=== PATIENT | male | born 1965 | race Caucasian/White ===

== ENCOUNTER → 2021-12-07 | Day surgery (SDC) | payer OTHER ==
[2021-12-06 08:41] LABS: BUN 16 mg/dl (7-24); CHLORIDE 110 mmol/L (98-107); CREATININE 1.19 mg/dL (0.70-1.30); POTASSIUM 4.3 mmol/L (3.5-5.1); SODIUM 141 mmol/L (136-145)
[~2021-12-07] VITALS: Ht 172.7 cm; Wt 122.5 kg
[~2021-12-07] MED LIST: CETIRIZINE10 MG PO; MECLIZINE HCL25 M2 PO; OMEPRAZOLE40 MG PO; VITAMIN B1250 MCG PO; VITAMIN D310 MC1 PO
[2021-12-07 06:54] VITALS: BP 149/94
[2021-12-07 07:49] VITALS: BP 132/91
[2021-12-07 08:04] VITALS: BP 133/91
[2021-12-07 08:18] VITALS: BP 143/95
== END | disposition home or self-care (01) ==
LOC: SDC 12-04 08:00 → LAB 00:52 → SDC 00:52 → LAB 07:30
PROVIDERS: ATTEND Orthopaedic Surgery
DX: G56.03 Carpal tunnel syndrome, bilateral upper limbs (principal); K21.9 Gastro-esophageal reflux disease without esophagitis; Z79.899 Other long term (current) drug therapy

== ENCOUNTER → 2023-09-05 | Day surgery (SDC) | payer OTHER ==
[2023-09-02 15:44] LABS: BUN 14 mg/dl (9-23); CHLORIDE 105 mmol/L (98-107); POTASSIUM 4.4 mmol/L (3.4-5.1)
[~2023-09-05] VITALS: Ht 170.1 cm; Wt 122.5 kg
[~2023-09-05] MED LIST changes: +BUPIVACAINE 0.5% 10 ML VIAL ONE; +EPINEPHrine/Lidocaine Hydroc 20 ML VIAL ONE; +LIPITOR40 MG PO; +Lidocaine Hydrochloride 2% 10 ML AMP IM ONE; +Lidocaine Hydrochloride 30 ML VIAL ONE; +Midazolam Hydrochloride 2 MG/2 ML VIAL IV ONE; +PEPCID20 MG PO; +PLAVIX75 M1 PO; +PROPOFOL 200 MG/20 ML VIAL IV ONE; +SODIUM CHLORIDE 0.9% 1,000 ML IV ONE; +SODIUM CHLORIDE 0.9% 1,000 ML IV SCH; +VALSARTAN40 MG PO; +ceFAZolin sodium 1GM/10ML IV SCH; +ceFAZolin sodium/sodium chlor 10 ML IV ONE
[2023-09-05 06:55] VITALS: BP 108/69
[2023-09-05 07:57] VITALS: BP 112/77
[2023-09-05 08:12] VITALS: BP 110/70
[2023-09-05 08:24] VITALS: BP 92/65
== END | disposition home or self-care (01) ==
LOC: SDC 09-02 08:00
PROVIDERS: ATTEND Orthopaedic Surgery
DX: G56.02 Carpal tunnel syndrome, left upper limb (principal); I10 Essential (primary) hypertension; K21.9 Gastro-esophageal reflux disease without esophagitis; I25.10 Atherosclerotic heart disease of native coronary artery without angina pectoris; Z86.73 Personal history of transient ischemic attack (TIA), and cerebral infarction without residual deficits; E78.00 Pure hypercholesterolemia, unspecified; Z98.890 Other specified postprocedural states; Z79.899 Other long term (current) drug therapy

== ENCOUNTER → 2024-11-16 | Outpatient (CLI) | payer OTHER ==
[~2024-11-16] MED LIST changes: -BUPIVACAINE 0.5% 10 ML VIAL ONE; -EPINEPHrine/Lidocaine Hydroc 20 ML VIAL ONE; -Lidocaine Hydrochloride 2% 10 ML AMP IM ONE; -Lidocaine Hydrochloride 30 ML VIAL ONE; -Midazolam Hydrochloride 2 MG/2 ML VIAL IV ONE; -PROPOFOL 200 MG/20 ML VIAL IV ONE; -SODIUM CHLORIDE 0.9% 1,000 ML IV ONE; -SODIUM CHLORIDE 0.9% 1,000 ML IV SCH; -ceFAZolin sodium 1GM/10ML IV SCH; -ceFAZolin sodium/sodium chlor 10 ML IV ONE
== END | disposition home or self-care (01) ==
LOC: RAD 16:01
PROVIDERS: ATTEND Internal Medicine
DX: M47.816 Spondylosis without myelopathy or radiculopathy, lumbar region (principal); M48.061 Spinal stenosis, lumbar region without neurogenic claudication; M25.78 Osteophyte, vertebrae; M54.31 Sciatica, right side